=== PATIENT | female | born 1980 | race Caucasian/White ===

== ENCOUNTER 2020-03-07 12:30 | Day surgery (SDC) | payer OTHER ==
[2012-04-24 04:53] VITALS: BP 126/70
[~2020-03-07 12:30] MED LIST: DIPRIVAN 200 MG/20 ML IV ONE; Ketamine HCl 50 MG/ML ONE
[2020-03-07] MEDS ORDERED: Depo-Medrol 40 MG/ML IM ONE (12:31)
[2020-03-07] MEDS ORDERED: Sodium Chloride 0.9(Preservative Free) 10 ML IJ ONE (12:31)
[2020-03-07] MEDS ORDERED: Lactated Ringers 1,000 ML IV ONE (16:00)
--- NOTE | 2020-03-07 16:27 | XRAY ---
44 seconds of fluoroscopy was used in surgery for a right L4-L5 and L5-S1 transforaminal NEGRA.
--- NOTE | 2020-03-07 16:30 | XRAY ---
Indication: Right L4-S1 transforaminal NEGRA. Intraoperative fluoroscopy was provided for 44 seconds. 3 digital spot images submitted for interpretation demonstrates posterior needle tips projecting over the expected course of the right L4 and L5 nerve roots. Small amount of contrast injected for needle tip placement. Correlate with intraoperative findings/report.
== END 2020-03-07 15:20 | disposition home or self-care (01) ==
LOC: SDC-PAIN 12:30
PROVIDERS: ATTEND Psychiatry & Neurology Pain Medicine
DX: M54.16 Radiculopathy, lumbar region (principal); I10 Essential (primary) hypertension; K21.9 Gastro-esophageal reflux disease without esophagitis; F41.8 Other specified anxiety disorders; Z79.899 Other long term (current) drug therapy
CPT/HCPCS: 64484; 64493; 72100; 77003; 84703; J1030; J2704; Q9966

== ENCOUNTER 2021-02-05 00:50 | Observation (INO) | payer OTHER ==
[~2021-02-05 00:50] MED LIST changes: -DIPRIVAN 200 MG/20 ML IV ONE; -Ketamine HCl 50 MG/ML ONE; +MEFOXIN 1 Gm/ D5W 50 Ml** 1 G/50 ML ML IV SCH
--- NOTE | 2021-02-05 02:07 | ERPHSYRPT ---
- History of Present Illness Historian: patient Patient Subjective Stated Complaint: Patient states " I started having ABD pain around 1999 last night and then around 2200 the pain became unbearable." Triage Nursing Assessment: Patient arrived to ED in W/C with 1 assist to room. Patient independent with transfer to bed. Patient stated she did have to void and ambulated to BR with slow steady gait. Urine collected and yellow in color with no odor present. Patient A/O times 4. Patient able to follow instructions without difficulty. Patient states right center and side of ABD is where most of pain and tenderness is located. Patient with complaints of pain when RN palpitated center and right side of ABD and no pain to left ABD when palpitated. + BS times 4 quads. ABD large, obese, non-distended. Patient states she had BM last night that was normal. Patient denies any loose stools. Patient states she has had nausea but no vomiting. Patient states she has been having ABD pain for several weeks now and that she just had Gallbladder U/S done on 02/01/21 but hasn't heard about results yet. Patient stated she had eaten grilled chicken around 1900 last night. Patient skin turgor < 3 seconds. Oral mucosa moist. No visual S/S of dehydration noted. Patient noted with non-pitting edema to bila teral lower extremities. + Pedal pulses bilateral. Physician History: 40 yo wf w epigastric pain x 1month. Pain is 10 on scale and sharp. It started to get worse at 22:00. She has had nausea wo vomiting/diarrhea/melena/hematochezia/dysuria/hematuria. Neg Gallbladder US on 02/01/21. Timing/Duration: other (1 month, worse since 22:0) Quality: sharpness, stabbing Abdominal Pain Onset Location: epigastric Pain Radiation: flank (R flank) Severity of Pain-Max: severe Severity of Pain-Current: severe Modifying Factors: Worsens With: analgesics, antacids, breathing, coughing, defecating, eating, exercise, lying down, movement, palpation, rest, urinating, vomiting, position, walking Associated Symptoms: back, nausea, No chest pain, No diaphoresis, No diarrhea, No fever/chills, No fatigue, No headache, No heartburn, No loss of appetite, No neck pain, No rash, No shortness of breath, No syncope, No vomiting, No weakness Previous symptoms: same symptoms as today Allergies/Adverse Reactions: codeine Adverse Reaction (Mild, Verified 02/05/21 01:24) Nausea and Vomiting Home Medications: Norgestimate-Ethinyl Estradiol [Tri-Sprintec Tablet] 1 each PO HS 09/28/15 [History] Metoprolol Succinate 25 mg PO DAILY 02/05/21 [History] Multivitamin [Multi-Vitamin Daily] 1 each PO DAILY 02/05/21 [History] Hx Tetanus, Diphtheria Vaccination/Date Given: No Hx Influenza Vaccination/Date Given: No Hx Pneumococcal Vaccination/Date Given: No Immunizations Up to Date: Yes Travel Risk - International Travel Have you traveled outside of the country in past 3 weeks: No - Coronavirus Screening Are you exhibiting any of the following symptoms?: No Close contact with a COVID-19 positive Pt in past 14-21 Days: No - Vaccine Status Have you recieved a Covid-19 vaccination: No - Review of Systems Constitutional: No Symptoms Eyes: No Symptoms Ears, Nose, & Throat: No Symptoms Respiratory: No Symptoms Cardiac: No Symptoms Abdominal/Gastrointestinal: Abdominal Pain, Nausea, No Vomiting, No Diarrhea, No Constipation, No Hematemesis, No Hematochezia, No Melena, No Dysphagia Genitourinary Symptoms: No Dysuria, No Frequency, No Hematuria, No Hesitancy, No Incontinence, No Urgency, No Urinary Retention, No Flank Pain, No Menorrhagia, No , No Vaginal Bleeding, No Vaginal Discharge Musculoskeletal: No Symptoms Skin: No Symptoms Neurological: No Symptoms Psychological: No Symptoms Endocrine: No Symptoms Hematologic/Lymphatic: No Symptoms Immunological/Allergic: No Symptoms - Past Medical History Pertinent Past Medical History: No Neurological History: No Pertinent History ENT History: No Pertinent History Cardiac History: Hypertension Respiratory History: No Pertinent History Endocrine Medical History: No Pertinent History Musculoskeletal History: No Pertinent History GI Medical History: No Pertinent History History: No Pertinent History Psycho-Social History: Anxiety Female Reproductive Disorders: No Pertinent History - Past Surgical History Past Surgical History: Yes Neuro Surgical History: No Pertinent History Cardiac: No Pertinent History Respiratory: No Pertinent History Gastrointestinal: No Pertinent History Genitourinary: No Pertinent History Musculoskeletal: Orthopedic Surgery Female Surgical History: No Pertinent History Other Surgical History: Laser to lower spine - Social History Smoking Status: Never smoker Exposure to second hand smoke: No Drug Use: none Patient Lives Alone: No Significant Family History: no pertinent family hx - Female History Hx Last Menstrual Period: 01/06/21 Hx Now: No - Nursing Vital Signs Nursing Vital Signs: Initial Vital Signs Temperature 98.1 F 02/05/21 01:27 Pulse Rate 91 H 02/05/21 01:27 Respiratory Rate 22 02/05/21 01:27 Blood Pressure 119/90 02/05/21 01:27 O2 Sat by Pulse Oximetry 100 02/05/21 01:27 Pain Scale Pain Intensity 4 WNL - Physical Exam General Appearance: no apparent distress Eye Exam: PERRL/EOMI, eyes nml inspection Ears, Nose, Throat Exam: normal ENT inspection, TMs normal, pharynx normal, moist mucous membranes Neck Exam: normal inspection, non-tender, supple, full range of motion, No meningismus, No mass, No Brudzinski, No Kernig's Respiratory Exam: normal breath sounds, lungs clear, airway intact, No respiratory distress Cardiovascular Exam: regular rate/rhythm, normal heart sounds, normal peripheral pulses, No murmur Gastrointestinal/Abdomen Exam: soft, normal bowel sounds, tenderness (Epigastric TTP wo guarding or rebound) Back Exam: normal inspection, normal range of motion, No CVA tenderness, No vertebral tenderness Extremity Exam: normal inspection, normal range of motion Neurologic Exam: alert, oriented x 3, normal mood/affect, nml station & gait, sensation nml, No cooperative, No octave board racker II-XII nml as tested Skin Exam: normal color, warm, dry Lymphatic Exam: No adenopathy SpO2 Interpretation: normal SpO2: 100 O2 Delivery: Room Air Ordered Tests: Medication Summary Discontinued Medications Generic Name Dose Route Start Last Admin Trade Name Freq PRN Reason Stop Dose Admin Acetaminophen 650 mg 02/06/21 07:45 Tylenol 325 Mg PO 03/08/21 07:44 Q4H PRN PRN TEMP>100 Acetaminophen 650 mg 02/06/21 07:45 Feverall 650 Mg RC 03/08/21 07:44 Q4H PRN PRN TEMP>100 Hydrocodone Bitart/Acetaminophen 1 tab 02/05/21 21:42 02/06/21 06:45 Burdine 5/325 Mg PO 02/10/21 21:41 1 tab Q4H PRN PRN Administration PAIN Bupivacaine HCl Confirm 02/05/21 18:16 Sensorcaine 0.25% 10 Ml Administered 02/05/21 18:17 Dose 10 ml .ROUTE .STK-MED ONE Dexamethasone Sodium Phosphate Confirm 02/05/21 18:52 Decadron 4 Mg Inj Administered 02/05/21 18:53 Dose 8 mg .ROUTE .STK-MED ONE Enoxaparin Sodium 40 mg 02/06/21 10:00 02/06/21 10:37 Enoxaparin Sodium SQ 03/08/21 09:59 40 mg DAILY HANDY Administration Fentanyl Citrate 100 mcg 02/05/21 03:17 02/05/21 03:30 Sublimaze 100 Mcg/2 Ml IV 02/05/21 03:18 100 mcg STAT ONE Administration Fentanyl Citrate Confirm 02/05/21 03:26 Sublimaze 100 Mcg/2 Ml Administered 02/05/21 03:27 Dose 100 mcg .ROUTE .STK-MED ONE Fentanyl Citrate Confirm 02/05/21 18:51 Sublimaze 100 Mcg/2 Ml Administered 02/05/21 18:52 Dose 100 mcg .ROUTE .STK-MED ONE Fentanyl Citrate Confirm 02/05/21 19:37 Sublimaze 100 Mcg/2 Ml Administered 02/05/21 19:38 Dose 100 mcg .ROUTE .STK-MED ONE Hydromorphone HCl 1 mg 02/05/21 05:10 02/05/21 08:43 Hydromorphone 1 Mg/Ml Injection IV 02/10/21 05:09 1 mg Q4H PRN PRN Administration PAIN Hydromorphone HCl 30 mg 02/05/21 10:30 02/05/21 11:02 Dilaudid 1 Mg/1ml Teacher [employer] IV 02/10/21 10:29 30 mg UD PRN Administration PAIN Hydromorphone HCl Confirm 02/05/21 20:35 Hydromorphone 1 Mg/Ml Injection Administered 02/05/21 20:36 Dose 1 mg .ROUTE .STK-MED ONE Piperacillin Sod/Tazobactam 100 mls @ 200 mls/hr 02/05/21 06:00 02/06/21 05:57 Sod 3.375 gm/ Sodium Chloride IV 02/08/21 05:59 Not Given Q6HT HANDY Sodium Chloride Confirm 02/05/21 05:31 Sodium Chloride 100ml Mini-Bag Plus Administered 02/05/21 05:32 Dose 100 mls @ ud IV .STK-MED ONE Sodium Chloride 1,000 mls @ 50 mls/hr 02/05/21 11:00 02/05/21 11:04 Sodium Chloride 0.9% 1000 Ml IV 03/07/21 10:59 50 mls/hr .Q20H HANDY Administration Cefoxitin Sodium 2 gm in 50 mls @ 100 mls/hr 02/05/21 17:00 Mefoxin 2 Gm Premix IV 02/08/21 16:59 ONCALLTOOR HANDY Lactated Ringer's 1,000 mls @ 50 mls/hr 02/05/21 17:00 02/05/21 21:50 Lactated Ringers IV 03/07/21 16:59 50 mls/hr .Q20H HANDY Administration Lactated Ringer's Confirm 02/05/21 18:17 Lactated Ringers Administered 02/05/21 18:18 Dose 1,000 mls @ ud IV .STK-MED ONE Potassium Chloride/Dextrose/Sod Cl 1,000 mls @ 100 mls/hr 02/05/21 22:30 Dextrose 5% -Nacl 0.9% 1000 Ml + Kcl 20 Meq IV 03/07/21 22:29 .Q10H HANDY Cefoxitin Sodium 1 g in 50 mls @ 100 mls/hr 02/05/21 00:00 Mefoxin 1 Gm/ D5w 50 Ml IV 02/08/21 00:00 Q8HT HANDY Cefoxitin Sodium 1 g in 50 mls @ 100 mls/hr 02/05/21 22:21 02/06/21 05:08 Mefoxin 1 Gm/ D5w 50 Ml IV 02/08/21 22:19 100 mls/hr Q8HT HANDY Administration Potassium Chloride/Dextrose/Sod Cl Confirm 02/05/21 22:27 D5w/0.45ns W/ 20meq Kcl 1000 Ml Administered 02/05/21 22:28 Dose 1,000 mls @ ud IV .STK-MED ONE Potassium Chloride/Dextrose/Sod Cl 1,000 mls @ 100 mls/hr 02/05/21 22:30 02/06/21 11:19 D5w/0.45ns W/ 20meq Kcl 1000 Ml IV 03/07/21 22:29 100 mls/hr .Q10H HANDY Administration Cefoxitin Sodium Confirm 02/05/21 22:27 Mefoxin 1 Gm/ D5w 50 Ml Administered 02/05/21 22:28 Dose 1 g in 50 mls @ ud IV .STK-MED ONE Cefoxitin Sodium Confirm 02/06/21 04:48 Mefoxin 1 Gm/ D5w 50 Ml Administered 02/06/21 04:49 Dose 1 g in 50 mls @ ud IV .STK-MED ONE Ketorolac Tromethamine 30 mg 02/05/21 02:08 02/05/21 02:21 Toradol 30 Mg Injection IV 02/05/21 02:09 30 mg STAT ONE Administration Ketorolac Tromethamine Confirm 02/05/21 02:20 Toradol 30 Mg Injection Administered 02/05/21 02:21 Dose 30 mg .ROUTE .STK-MED ONE Ketorolac Tromethamine Confirm 02/05/21 19:29 Toradol 30 Mg Injection Administered 02/05/21 19:30 Dose 30 mg .ROUTE .STK-MED ONE Lidocaine HCl Confirm 02/05/21 18:52 Xylocaine-Mpf 2% 5 Ml Vial Administered 02/05/21 18:53 Dose 5 ml .ROUTE .STK-MED ONE Metoprolol Succinate 25 mg 02/06/21 10:00 02/06/21 10:37 Toprol-Xl 25mg Tablets PO 03/08/21 09:59 25 mg DAILY HANDY Administration Miscellaneous Information 1 each 02/06/21 08:15 Medication Intervention PO 03/08/21 08:14 .RN TO CHECK ON HANDY Morphine Sulfate 1 mg 02/06/21 02:47 Morphine Sulfate 2 Mg Inj IV 02/11/21 02:46 Q6H PRN PRN PAIN Morphine Sulfate 2 mg 02/06/21 07:50 Morphine Sulfate 2 Mg Inj IV 02/11/21 07:49 Q2H PRN PRN Multivitamins Therapeutic 1 tab 02/06/21 10:00 02/06/21 10:37 Theragran Multivitamin PO 03/08/21 09:59 1 tab DAILY HANDY Administration Ondansetron HCl 4 mg 02/05/21 03:18 02/05/21 03:30 Zofran 4 Mg/2 Ml Vial IV 02/05/21 03:19 4 mg STAT ONE Administration Ondansetron HCl Confirm 02/05/21 03:26 Zofran 4 Mg/2 Ml Vial Administered 02/05/21 03:27 Dose 4 mg .ROUTE .STK-MED ONE Ondansetron HCl 4 mg 02/05/21 05:10 02/05/21 14:43 Zofran 4 Mg/2 Ml Vial IV 03/07/21 05:09 4 mg Q6H PRN PRN Administration NAUSEA/VOMITING Ondansetron HCl Confirm 02/05/21 18:52 Zofran 4 Mg/2 Ml Vial Administered 02/05/21 18:53 Dose 4 mg .ROUTE .STK-MED ONE Pantoprazole Sodium 40 mg 02/05/21 10:00 02/06/21 10:37 Protonix 40 Mg Iv IV 03/07/21 09:59 40 mg DAILY HANDY Administration Piperacillin Sod/Tazobactam Sod Confirm 02/05/21 05:30 Zosyn 3.375 Gm Vial Administered 02/05/21 05:31 Dose 3.375 gm IV .STK-MED ONE Piperacillin Sod/Tazobactam Sod Confirm 02/05/21 05:31 Zosyn 3.375 Gm Vial Administered 02/05/21 05:32 Dose 3.375 gm IV .STK-MED ONE Propofol Confirm 02/05/21 18:52 Diprivan 200 Mg/20 Ml Administered 02/05/21 18:53 Dose 200 mg IV .STK-MED ONE Rocuronium [place] Confirm 02/05/21 18:52 Zemuron 100 Mg/10 Ml Administered 02/05/21 18:53 Dose 30 mg .ROUTE .STK-MED ONE Rocuronium [place] Confirm 02/05/21 18:55 Zemuron 100 Mg/10 Ml Administered 02/05/21 18:56 Dose 10 mg .ROUTE .STK-MED ONE Sugammadex Sodium Confirm 02/05/21 18:52 Bridion 200mg/2ml Administered 02/05/21 18:53 Dose 200 mg IV .STK-MED ONE Lab/Rad Data: Laboratory Result Diagrams 02/05/21 02:45 02/05/21 02:45 Laboratory Results 02/05/21 02/05/21 02/05/21 Range/Units 07:42 05:11 02:45 WBC (4.0-10.5) K/mm3 RBC (4.1-5.4) M/mm3 Hgb (12.0-16.0) gm/dl Hct (35-47) % MCV (78-100) fl MCH (26-32) pg MCHC (32-36) g/dl RDW (11.5-14.0) % Plt Count (150-450) K/mm3 MPV (7.5-11.0) fl Gran % (36.0-66.0) % Eos # (Auto) (0-0.5) Absolute Lymphs (auto) (1.0-4.6) Absolute Monos (auto) (0.0-1.3) Lymphocytes % (24.0-44.0) % Monocytes % (0.0-12.0) % Eosinophils % (0.00-5.0) % Basophils % (0.0-0.4) % Absolute Granulocytes (1.4-6.9) Basophils # (0-0.4) Sodium (137-145) mmol/L Potassium (3.5-5.1) mmol/L Chloride (98-107) mmol/L Carbon Dioxide (22-30) mmol/L Anion Gap (5-15) MEQ/L BUN (7-17) mg/dL Creatinine (0.52-1.04) mg/dL Estimated GFR ML/MIN Glucose (74-106) mg/dL Calcium (8.4-10.2) mg/dL Total Bilirubin (0.2-1.3) mg/dL AST (14-36) U/L ALT (0-35) U/L Alkaline Phosphatase (38-126) U/L Troponin I < 0.012 (0.000-0.034) ng/mL Serum Total Protein (6.3-8.2) g/dL Albumin (3.5-5.0) g/dL Amylase (30-110) U/L Lipase (23-300) U/L Serum , Qual NEGATIVE (Negative) Urine Color (YELLOW) Urine Appearance (CLEAR) Urine pH (5-6) Ur Specific [place] (1.005-1.025) Urine Protein (Negative) Urine Ketones (NEGATIVE) Urine Blood (0-5) Evelio/ul Urine Nitrite (NEGATIVE) Urine Bilirubin (NEGATIVE) Urine Urobilinogen (0-1) mg/dL Ur Leukocyte Esterase (NEGATIVE) Urine WBC (Auto) (0-5) /HPF Urine RBC (Auto) (0-2) /HPF U Epithel Cells (Auto) (FEW) /HPF Urine Bacteria (Auto) (NEGATIVE) /HPF Urine Mucus (Auto) (NEGATIVE) /HPF Urine Culture Reflexed (NO) Urine Glucose (NEGATIVE) mg/dL SARS-CoV-2 (PCR) NEGATIVE (NEGATIVE) Slides for Path Review 02/05/21 02/05/21 02/05/21 Range/Units 02:45 02:45 02:45 WBC 15.7 H (4.0-10.5) K/mm3 RBC 4.29 (4.1-5.4) M/mm3 Hgb 11.8 L (12.0-16.0) gm/dl Hct 37.2 (35-47) % MCV 86.7 (78-100) fl MCH 27.5 (26-32) pg MCHC 31.7 L (32-36) g/dl RDW 13.7 (11.5-14.0) % Plt Count 130 L (150-450) K/mm3 MPV 11.4 H (7.5-11.0) fl Gran % 78.5 H (36.0-66.0) % Eos # (Auto) 0.44 (0-0.5) Absolute Lymphs (auto) 1.68 (1.0-4.6) Absolute Monos (auto) 1.22 (0.0-1.3) Lymphocytes % 10.7 L (24.0-44.0) % Monocytes % 7.8 (0.0-12.0) % Eosinophils % 2.8 (0.00-5.0) % Basophils % 0.2 (0.0-0.4) % Absolute Granulocytes 12.36 H (1.4-6.9) Basophils # 0.03 (0-0.4) Sodium 134 L (137-145) mmol/L Potassium 3.8 (3.5-5.1) mmol/L Chloride 105 (98-107) mmol/L Carbon Dioxide 19 L (22-30) mmol/L Anion Gap 13.0 (5-15) MEQ/L BUN 12 (7-17) mg/dL Creatinine 0.56 (0.52-1.04) mg/dL Estimated GFR > 60.0 ML/MIN Glucose 116 H (74-106) mg/dL Calcium 8.9 (8.4-10.2) mg/dL Total Bilirubin 0.70 (0.2-1.3) mg/dL AST 20 (14-36) U/L ALT 18 (0-35) U/L Alkaline Phosphatase 50 (38-126) U/L Troponin I < 0.012 (0.000-0.034) ng/mL Serum Total Protein 7.0 (6.3-8.2) g/dL Albumin 4.0 (3.5-5.0) g/dL Amylase 68 (30-110) U/L Lipase 51 (23-300) U/L Serum , Qual (Negative) Urine Color (YELLOW) Urine Appearance (CLEAR) Urine pH (5-6) Ur Specific [place] (1.005-1.025) Urine Protein (Negative) Urine Ketones (NEGATIVE) Urine Blood (0-5) Evelio/ul Urine Nitrite (NEGATIVE) Urine Bilirubin (NEGATIVE) Urine Urobilinogen (0-1) mg/dL Ur Leukocyte Esterase (NEGATIVE) Urine WBC (Auto) (0-5) /HPF Urine RBC (Auto) (0-2) /HPF U Epithel Cells (Auto) (FEW) /HPF Urine Bacteria (Auto) (NEGATIVE) /HPF Urine Mucus (Auto) (NEGATIVE) /HPF Urine Culture Reflexed (NO) Urine Glucose (NEGATIVE) mg/dL SARS-CoV-2 (PCR) (NEGATIVE) Slides for Path Review YES 02/05/21 Range/Units 01:42 WBC (4.0-10.5) K/mm3 RBC (4.1-5.4) M/mm3 Hgb (12.0-16.0) gm/dl Hct (35-47) % MCV (78-100) fl MCH (26-32) pg MCHC (32-36) g/dl RDW (11.5-14.0) % Plt Count (150-450) K/mm3 MPV (7.5-11.0) fl Gran % (36.0-66.0) % Eos # (Auto) (0-0.5) Absolute Lymphs (auto) (1.0-4.6) Absolute Monos (auto) (0.0-1.3) Lymphocytes % (24.0-44.0) % Monocytes % (0.0-12.0) % Eosinophils % (0.00-5.0) % Basophils % (0.0-0.4) % Absolute Granulocytes (1.4-6.9) Basophils # (0-0.4) Sodium (137-145) mmol/L Potassium (3.5-5.1) mmol/L Chloride (98-107) mmol/L Carbon Dioxide (22-30) mmol/L Anion Gap (5-15) MEQ/L BUN (7-17) mg/dL Creatinine (0.52-1.04) mg/dL Estimated GFR ML/MIN Glucose (74-106) mg/dL Calcium (8.4-10.2) mg/dL Total Bilirubin (0.2-1.3) mg/dL AST (14-36) U/L ALT (0-35) U/L Alkaline Phosphatase (38-126) U/L Troponin I (0.000-0.034) ng/mL Serum Total Protein (6.3-8.2) g/dL Albumin (3.5-5.0) g/dL Amylase (30-110) U/L Lipase (23-300) U/L Serum , Qual (Negative) Urine Color YELLOW (YELLOW) Urine Appearance SLIGHTLY CLOUDY (CLEAR) Urine pH 5.0 (5-6) Ur Specific [place] 1.031 (1.005-1.025) Urine Protein NEGATIVE (Negative) Urine Ketones NEGATIVE (NEGATIVE) Urine Blood NEGATIVE (0-5) Evelio/ul Urine Nitrite NEGATIVE (NEGATIVE) Urine Bilirubin NEGATIVE (NEGATIVE) Urine Urobilinogen NEGATIVE (0-1) mg/dL Ur Leukocyte Esterase TRACE (NEGATIVE) Urine WBC (Auto) 3-5 (0-5) /HPF Urine RBC (Auto) 0-2 (0-2) /HPF U Epithel Cells (Auto) FEW (FEW) /HPF Urine Bacteria (Auto) RARE (NEGATIVE) /HPF Urine Mucus (Auto) SLIGHT (NEGATIVE) /HPF Urine Culture Reflexed NO (NO) Urine Glucose NEGATIVE (NEGATIVE) mg/dL SARS-CoV-2 (PCR) (NEGATIVE) Slides for Path Review - Progress Progress: improved Progress Note: 02/05/21 04:59 Admit to PCP per Dr. Marek Abad/Wants to keep NPO and will operate today Ok for admit to Dr. Carrillo 02/05/21 05:02 No improvement in pain w 30mg IV Toradol Marked improvement in pain w 100umg IM Fentanyl/4mg IV Zofran Counseled pt/family regarding: lab results, diagnosis, rad results - Departure Departure Disposition: Observation Clinical Impression: Appendicitis Condition: Stable Critical Care Time: No
[2021-02-05] MEDS ORDERED: TORAdol 30 mg Injection IV ONE (02:08)
[2021-02-05] MEDS ORDERED: TORAdol 30 mg Injection ONE ×2 (02:20→19:29)
[2021-02-05 02:53] LABS: Absolute Neutrophil Ct (ANC) 12.36 (1.4-6.9); BASOPHIL % 0.2 % (0.0-0.4); Basophil (Absolute #) 0.03 (0-0.4); Eosinophil % 2.8 % (0.00-5.0); Eosinophil (Absolute #) 0.44 (0-0.5); Hematocrit 37.2 % (35-47); Hemoglobin 11.8 gm/dl (12.0-16.0); Lymphocyte (Absolute #) 1.68 (1.0-4.6); Lymphocytes % 10.7 % (24.0-44.0); Mean Cell Volume 86.7 fl (78-100); Mean Corpuscular Hemoglobin 27.5 pg (26-32); Mean Corpuscular Hgb Concent. 31.7 g/dl (32-36); Mean Platelet Volume 11.4 fl (7.5-11.0); Monocyte (Absolute #) 1.22 (0.0-1.3); Monocytes % 7.8 % (0.0-12.0); Neutrophil % 78.5 % (36.0-66.0); Platelet Count 130 K/mm3 (150-450); Red Blood Count 4.29 M/mm3 (4.1-5.4); Red Cell Distribution Width 13.7 % (11.5-14.0); White Blood Count 15.7 K/mm3 (4.0-10.5)
[2021-02-05 03:04] LABS: ALKALINE PHOSPHATASE 50 U/L (38-126); AMYLASE 68 U/L (30-110); BLOOD UREA NITROGEN 12 mg/dL (7-17); CHLORIDE 105 mmol/L (98-107); Calcium 8.9 mg/dL (8.4-10.2); Carbon Dioxide 19 mmol/L (22-30); Creatinine 1 0.56 mg/dL (0.52-1.04); EST GLOMERULAR FILTRATION RATE > 60.0 ML/MIN; Glucose 116 mg/dL (74-106); LIPASE 51 U/L (23-300); Potassium 3.8 mmol/L (3.5-5.1); SGOT/AST 20 U/L (14-36); SGPT/ALT 18 U/L (0-35); SODIUM 134 mmol/L (137-145)
[2021-02-05] MEDS ORDERED: SUBLIMAZE 100 MCG/2 ML IV ONE (03:17)
[2021-02-05 03:18] LABS: Appearance SLIGHTLY CLOUDY (CLEAR); Bacteria RARE /HPF (NEGATIVE); Bilirubin NEGATIVE (NEGATIVE); Blood NEGATIVE Ery/ul (0-5); Epithelial Cells FEW /HPF (FEW); Glucose NEGATIVE (NEGATIVE); Ketones NEGATIVE (NEGATIVE); Leukocyte Esterase TRACE (NEGATIVE); Mucus SLIGHT /HPF (NEGATIVE); Nitrite NEGATIVE (NEGATIVE); Protein,Urine Dip NEGATIVE (Negative); RBC 0-2 /HPF (0-2); Specific Gravity 1.031 (1.005-1.025); Urobilinogen NEGATIVE mg/dL (0-1)
[2021-02-05] MEDS ORDERED: Zofran 4 MG/2 ML VIAL IV ONE (03:18)
[2021-02-05] MEDS ORDERED: Zofran 4 MG/2 ML VIAL ONE ×2 (03:26→18:52)
[2021-02-05] MEDS ORDERED: SUBLIMAZE 100 MCG/2 ML ONE ×3 (03:26→19:37)
[2021-02-05] MEDS ORDERED: Hydromorphone 1 mg/ml Injection IV PRN (05:10)
[2021-02-05] MEDS ORDERED: Zofran 4 MG/2 ML VIAL IV PRN (05:10)
[2021-02-05] MEDS ORDERED: Zosyn 3.375 GM Vial IV ONE ×2 (05:30→05:31)
[2021-02-05] MEDS ORDERED: Sodium Chloride 100ML MINI-BAG PLUS 100 ML IV ONE (05:31)
[2021-02-05] MEDS: Zosyn 3.375 GM Vial 3.375 GM in Sodium Chloride 100ML MINI-BAG PLUS 100 ML IV SCH ×4 (05:35→23:11)
[2021-02-05 08:08] LABS: Slide Review 1 YES
--- NOTE | 2021-02-05 09:05 | XRAY ---
Indication: Abdomen pain. Multiple contiguous axial images obtained through the abdomen and pelvis without contrast. Comparison: March 05, 2011. Lung bases are clear. Heart not enlarged. Noncontrasted stomach and bowel loops nonobstructed. Prominent appendix up to 11-12 mm diameter with tiny appendicolith and periappendiceal stranding favoring acute appendicitis. No free fluid/air. Remaining liver, gallbladder, pancreas, spleen, adrenal glands, kidneys, ureters, bladder, uterus, and aorta are unremarkable for noncontrast exam. Osseous structures intact again with bilateral L3 spondylolysis and new 2-3 mm spondylolisthesis. Impression: 1. New CT findings favoring acute appendicitis. No complications. 2. Again incidental L5 spondylolysis with new grade 1 spondylolisthesis. Comment: Preliminary interpretation made by [facility]. No critical discrepancy.
[2021-02-05] MEDS: PROTONIX 40 MG IV IV SCH (10:17)
[2021-02-05] MEDS ORDERED: DILAUDID 1 MG/1ML PCA IV PRN (10:30)
[2021-02-05] MEDS ORDERED: Sodium Chloride 0.9% 1000 ML 1,000 ML IV SCH (11:00)
--- NOTE | 2021-02-05 11:46 | HP ---
CHIEF COMPLAINT: Abdominal pain. HISTORY OF PRESENT ILLNESS: The patient is a 40 year-old white female who presented to the emergency room with complaints of abdominal pain mostly periumbilical moving down to her suprapubic area. The patient reported that she thought she might having trouble with her gallbladder but on evaluation in the emergency room apparently CT scan showed that she had appendicitis. The patient is being admitted to the hospital with surgical consultation. PAST MEDICAL/SURGICAL HISTORY: The patient is healthy with no other significant medical problems other than being obese. HOME MEDICATIONS: control, metoprolol 25 mg daily. ALLERGIES: CODEINE. PHYSICAL EXAMINATION: The patient's vital signs on admission showed temperature to be 98.1F, pulse 91, respiratory rate 22 and blood pressure 119/90. O2 saturation 100% on room air. HEENT: Normocephalic, atraumatic. Pupils equal round reactive to light. Extraocular movements intact. Oropharynx is pink and moist. NECK: Supple without lymphadenopathy, thyromegaly or JVD. CHEST: Essentially clear to auscultation. HEART: Regular rate and rhythm without murmurs, rubs or gallops. ABDOMEN: Diffusely tender with mild rebound tenderness noted. LAB DATA AND TESTS: The patient's metabolic panel showed her BUN to be 12, creatinine 0.56. Electrolytes were otherwise normal. Liver enzymes were not elevated. Amylase and lipase were normal. Serum test was negative. White count 15,700, hemoglobin 11.8, PLT count 130,000. UA was essentially normal with 3 to 5 white blood cells per high power field but otherwise specific gravity 1.031 but was negative for protein, leukocyte esterase was trace. The patient apparently had CT scan report of which is not currently available to me but apparently showed the patient to have appendicitis. ASSESSMENT: The patient is now being admitted to the hospital being made NPO and surgical consultation has been obtained. They will come see the patient later today with the plan to do laparoscopic appendectomy.
[2021-02-05] MEDS ORDERED: Lactated Ringers 1,000 ML IV SCH (17:00)
[2021-02-05] MEDS ORDERED: MEFOXIN 2 GM PREMIX** 2 GM/50 ML ML IV SCH (17:00)
[2021-02-05] MEDS ORDERED: Sensorcaine 0.25% 10 ML ONE (18:16)
[2021-02-05] MEDS ORDERED: Lactated Ringers 1,000 ML IV ONE (18:17)
[2021-02-05] MEDS ORDERED: Zemuron 100 MG/10 ML ONE ×2 (18:52→18:55)
[2021-02-05] MEDS ORDERED: Xylocaine-Mpf 2% 5 Ml Vial ONE (18:52)
[2021-02-05] MEDS ORDERED: BRIDION 200MG/2ML IV ONE (18:52)
[2021-02-05] MEDS ORDERED: DIPRIVAN 200 MG/20 ML IV ONE (18:52)
[2021-02-05] MEDS ORDERED: Decadron 4 MG INJ ONE (18:52)
[2021-02-05] MEDS ORDERED: Hydromorphone 1 mg/ml Injection ONE (20:35)
[2021-02-05] MEDS: NORCO 5/325 MG PO PRN (21:43)
[2021-02-05] MEDS ORDERED: D5W/0.45NS W/ 20mEq KCl 1000 ML 1,000 ML IV ONE (22:27)
[2021-02-05] MEDS ORDERED: MEFOXIN 1 Gm/ D5W 50 Ml** 1 G/50 ML ML IV ONE (22:27)
[2021-02-05] MEDS: MEFOXIN 1 Gm/ D5W 50 Ml** 1 G/50 ML ML IV SCH (22:29)
[2021-02-05] MEDS ORDERED: DEXTROSE 5% -NACL 0.9% 1000 ML + KCl 20 MEQ 1,000 ML IV SCH (22:30)
[2021-02-05] MEDS: D5W/0.45NS W/ 20mEq KCl 1000 ML 1,000 ML IV SCH (22:31)
[2021-02-06] MEDS: NORCO 5/325 MG PO PRN ×2 (01:43→06:45)
[2021-02-06] MEDS ORDERED: MORPHINE SULFATE 2 MG INJ IV PRN ×2 (02:47→07:50)
[2021-02-06] MEDS ORDERED: MEFOXIN 1 Gm/ D5W 50 Ml** 1 G/50 ML ML IV ONE (04:48)
[2021-02-06] MEDS: MEFOXIN 1 Gm/ D5W 50 Ml** 1 G/50 ML ML IV SCH (05:08)
[2021-02-06] MEDS: Zosyn 3.375 GM Vial 3.375 GM in Sodium Chloride 100ML MINI-BAG PLUS 100 ML IV SCH (05:57)
[2021-02-06] MEDS ORDERED: TYLENOL 325 MG PO PRN (07:45)
[2021-02-06] MEDS ORDERED: FEVERALL 650 MG RC PRN (07:45)
--- NOTE | 2021-02-06 07:57 | PCM.DS ---
Discharge Summary Date of Admission: 02/05/21 08:24 Admitting Physician: DORIAN MARCELO Consults: Consults on Case 02/05/21 05:10 Consult Surgery ROUTINE Primary Care Provider: CITLALI LEMON Allergies Allergies codeine Adverse Reaction (Mild, Verified 02/05/21 01:24) Nausea and Vomiting Hospital Summary - Hospital Course Hospital Course: patient arrived to ER yesterday, c/o abd pain. ct showed appendicitis, had lap appy on 02/05, today seen by me POD #1, minimal pain is controlled with norco, feels better than prior to surgery. tolerating po intake, no nausea or vomiting. doing well - Vitals & Intake/Output Vital Signs: Vital Signs Temperature 97.8 F 02/06/21 04:09 Pulse Rate 82 02/06/21 04:09 Respiratory Rate 18 02/06/21 04:09 Blood Pressure 98/55 02/06/21 04:09 O2 Sat by Pulse Oximetry 98 02/06/21 04:09 Intake & Output: Intake & Output 02/03/21 02/04/21 02/05/21 02/06/21 11:59 11:59 11:59 11:59 Intake Total 0 1828 Balance 0 1828 Weight 124.4 kg 124.4 kg - Lab Result Diagrams: 02/05/21 02:45 02/05/21 02:45 Lab Results-Last 24 Hrs: Lab Results-Last 24 Hours 02/05/21 02/05/21 02/05/21 Range/Units 02:45 07:42 11:00 Troponin 0.01 (0.00-0.03) ng/mL Troponin I < 0.012 (0.000-0.034) ng/mL Slides for Path Review YES 02/05/21 Range/Units 13:57 Troponin 0.00 (0.00-0.03) ng/mL Troponin I (0.000-0.034) ng/mL Slides for Path Review - Radiology Exams Ordered Rad Exams-Entire Visit: Radiology Procedures Category Date Time Status ABDOMEN AND PELVIS W/0 CONTRAS [CT] Stat Exams 02/05/21 03:18 Completed Discharge Exam General Appearance: no apparent distress, obese Neurologic Exam: alert, oriented x 3 Respiratory Exam: normal breath sounds, lungs clear, No respiratory distress Cardiovascular Exam: regular rate/rhythm, normal heart sounds Gastrointestinal/Abdomen Exam: soft, other (port sites approximated, clean and dry) Extremity Exam: normal inspection, normal range of motion Skin Exam: normal color, warm, dry Final Diagnosis/Problem List - Final Discharge Diagnosis/Problem (1) Appendicitis Current Visit: Yes Status: Acute Assessment & Plan: doing well POD #1, home when ok with surgery Code(s): K37 - UNSPECIFIED APPENDICITIS - Discharge Disposition: Home, Self-Care Condition: Stable Prescriptions: Continue Norgestimate-Ethinyl Estradiol [Tri-Sprintec Tablet] 1 each PO HS Metoprolol Succinate 25 mg PO DAILY Multivitamin [Multi-Vitamin Daily] 1 each PO DAILY Follow up with: CITLALI LEMON NP [Primary Care Provider] -
[2021-02-06] MEDS ORDERED: MEDICATION INTERVENTION PO SCH (08:15)
[2021-02-06 09:50] VITALS: PULSE 70
[2021-02-06] MEDS ORDERED: NON-FORMULARY ITEM (Multivitamin [Multi-Vitamin Daily] 1 EACH) PO SCH (10:00)
[2021-02-06] MEDS ORDERED: Toprol-Xl 25MG Tablets PO SCH (10:00)
[2021-02-06] MEDS ORDERED: THERAGRAN MULTIVITAMIN PO SCH (10:00)
[2021-02-06] MEDS ORDERED: NON-FORMULARY ITEM (Metoprolol Succinate 25 MG) PO SCH (10:00)
[2021-02-06] MEDS ORDERED: ENOXAPARIN SODIUM SQ SCH (10:00)
[2021-02-06] MEDS: PROTONIX 40 MG IV IV SCH (10:37)
--- NOTE | 2021-02-06 10:49 | OP ---
SURGERY DATE/TIME: 02/05/20211906 PREOPERATIVE DIAGNOSIS: Acute appendicitis. POSTOPERATIVE DIAGNOSIS: Acute appendicitis with microperforation. PROCEDURE: Laparoscopic appendectomy. SURGEON: Marek Abad M.D. ANESTHESIA: General endotracheal tube. COMPLICATIONS: None. CONDITION: Stable. SPECIMENS: Ascites fluid sent for culture. INDICATION: A 40-year-old white female had pain at 2000 hours and presented to the emergency room this morning at 0100 or 0200 hours. I was called at 0430 hours. Diagnosis of acute appendicitis. IV antibiotics were started. Pain medicine started. DESCRIPTION OF PROCEDURE: She was taken to surgery this evening. General endotracheal tube anesthetic. Routine prep and drape. Veress needle right upper quadrant. A 5 port, good visualization. No issues. There was a little bit of slight turbid fluid right by the cecum and right anterior corner of the cornua area on the right this was suctioned and placed in a jar and sent as "Abdominal fluid". The appendix was slightly retroflexed medial. The [place] ligature was taken. The cecum was mobilized. The mesentery was mobilized. Appendix taken off the cecum with a vickers cartridge at this time and placed in a condom bag and removed without violation. The field was dry. It was irrigated and returned clear. The uterus was picked up and brought up anteriorly. The cul-de-sac was irrigated and was clear. Anterior cul-de-sac irrigated and clear. The 12 port was closed with hole closure device. Re-inspection of the abdominal-umbilical area 12 site was satisfactory. The CO2 was exsufflated. Two - 5's removed. Skin closed with 4-0 Vicryl, Steri-Strips. The patient tolerated the procedure satisfactorily. Findings discussed with her in the waiting room.
[2021-02-06] MEDS: D5W/0.45NS W/ 20mEq KCl 1000 ML 1,000 ML IV SCH (11:19)
[2021-02-06 12:45] VITALS: BP 99/51
[2021-02-06] MEDS ORDERED: NORGESTIMATE ETHINYL ESTRADIOL PO SCH (22:00)
[2021-02-11 07:54] VITALS: O2SAT 100
== END 2021-02-06 12:30 | disposition home or self-care (01) ==
LOC: ED 00:50 → MED SURG 08:24
PROVIDERS: ADMIT Family Medicine; ATTEND Family Medicine
DX: K35.32 Acute appendicitis with perforation, localized peritonitis, and gangrene, without abscess (principal); Z79.899 Other long term (current) drug therapy; Z20.822 Contact with and (suspected) exposure to COVID-19
CPT/HCPCS: 36000; 36415; 44970; 74176; 80053; 81001; 81025; 82150; 83690; 84484; 85025; 87070; 87075; 87205; 96374; 96375; 99285; G0378; U0003; 88304; J0694; J1100; J1170; J1650; J1885; J2405; J2704; J3010; A9270-GY